=== PATIENT | male | born 1955 | race Hispanic/Latino ===

== ENCOUNTER 2018-05-05 10:13 | Emergency (ER) | payer OTHER ==
[2018-05-05 10:14] VITALS: BMI 27.3
[2018-05-05 10:16] VITALS: BP 129/79; PULSE 82; RESP 17; TEMP 98.5; O2SAT 98
[2018-05-05] MEDS ORDERED: Tdap Vaccine 0.5 ml Vial (10-64 yrs) IM ONE ×2 (10:29→10:41)
[2018-05-05] MEDS ORDERED: Absorbable Gelatin Sponge Size 12-7 TP ONE (10:29)
--- NOTE | 2018-05-05 10:32 | ED PDOC ---
HPI: General Adult Time Seen by Provider: 05/05/18 10:16 History Per: Patient Onset/Duration Of Symptoms: Hrs (1) Current Symptoms Are (Timing): Still Present Severity: Mild Additional Complaint(s): Laceration to right ring finger on flower stem while at work. Past Medical History Vital Signs: Last Vital Signs Temp 98.5 F 05/05/18 10:15 Pulse 82 05/05/18 10:15 Resp 17 05/05/18 10:15 BP 129/79 05/05/18 10:15 Pulse Ox 98 05/05/18 10:15 - Surgical History Other surgeries: Cervical spine surgery - Family History Family History: States: Unknown Family Hx - Allergies Allergies/Adverse Reactions: Allergies Allergy/AdvReac Type Severity Reaction Status Date / Time No Known Allergies Allergy Verified 05/05/18 10:29 Review of Systems Constitutional: Negative for: Fever Musculoskeletal: Positive for: Other (Laceration ) Neurological: Negative for: Weakness, Numbness Physical Exam - Physical Exam Appears: Positive for: Non-toxic, No Acute Distress Skin: Positive for: Normal Color, Warm, DRY Extremity: Positive for: Other (1 cm sup avulsion laceration lateral aspect right ring finger. No M/S deficits) - ECG O2 Sat by Pulse Oximetry: 98 Medical Decision Making Medical Decision Making: No sutures necessary. Wound dressed with gelfoam Disposition - Clinical Impression Clinical Impression: Laceration - Patient ED Disposition Is Patient to be Admitted: No Counseled Patient/Family Regarding: Diagnosis, Need For Followup - Disposition Referrals: [facility] [Outside] Disposition: Routine/Home Disposition Time: 10:33 Condition: FAIR Instructions: Wound Care
[2018-05-05] MEDS ORDERED: Absorbable Gelatin Sponge Size 100 TP ONE (11:07)
== END 2018-05-05 12:10 | disposition home or self-care (01) ==
LOC: H.ER 10:13
DX: S61.214A Laceration without foreign body of right ring finger without damage to nail, initial encounter (principal); W26.8XXA Contact with other sharp object(s), not elsewhere classified, initial encounter; Y92.89 Other specified places as the place of occurrence of the external cause